=== PATIENT | male | born 1960 | race Caucasian/White ===

== ENCOUNTER 2016-10-06 20:20 | Emergency (ER) | payer SELFPAY ==
[2016-10-06 20:25] VITALS: BP 122/64
[2016-10-06] MEDS ORDERED: IPRATRPIUM/ALBUTEROL 0.5/2.5MG 3 ML NEBU. NEB ONE (21:00)
[2016-10-06] MEDS ORDERED: predniSONE 10 MG TABLET PO ONE (21:00)
[2016-10-06] MEDS ORDERED: BENZONATATE 100 MG CAPSULE. PO ONE (21:00)
[2016-10-06] MEDS ORDERED: AZIT250T6 PO (21:59)
[2016-10-06] MEDS ORDERED: FLUT9.9S NS (21:59)
[2016-10-06] MEDS ORDERED: PROAIR HFA8.5 GM INH (21:59)
[2016-10-06] MEDS ORDERED: BENZ100C PO (21:59)
[2016-10-06] MEDS ORDERED: PRED50TA PO (21:59)
--- NOTE | 2016-10-06 22:00 | PHYS DOC ---
Past Medical History Past Medical History: Hypertension Additional Past Medical Histor: mitral valve prolapse Past Surgical History: Tonsillectomy Additional Past Surgical Histo: back ,hernia,skni cancer removal Alcohol Use: None Drug Use: None Adult General Chief Complaint Chief Complaint: Congestion HPI HPI Patient is a 55 year old male who presents with cough & sinus congestion. he reports cough x 1 month now productive of white/yellow sputum, frequent at rest & with deep breathing. Also has generalized sinus congestion, ear pressure, headache. Denies fevers (though has been taking acetaminophen), vision changes , sore throat, shortness of breath, chest pain, nausea, vomiting, diarrhea. He is a current every day smoker, denies COPD. Also has history of HTN. Does not have a PCP. Review of Systems Review of Systems Constitutional: Denies fever or chills Eyes: Denies change in visual acuity HENT: Reports nasal congestion, denies sore throat Respiratory: Reports cough, denies shortness of breath Cardiovascular: Denies chest pain or edema GI: Denies abdominal pain, nausea, vomiting, or diarrhea Musculoskeletal: Denies back pain or joint pain Integument: Denies rash or skin lesions Neurologic: Reports headache, denies focal weakness or sensory changes Current Medications Current Medications Current Medications Medications (Trade) Dose Ordered Sig/Clay Start Time Stop Time Status Last Admin Dose Admin Albuterol/ Ipratropium (Duoneb) 3 ml 1X ONCE 10/06/16 21:00 10/06/16 21:01 DC 10/06/16 21:00 3 ML Benzonatate (Tessalon Perle) 100 mg 1X ONCE 10/06/16 21:00 10/06/16 21:01 DC 10/06/16 20:59 100 MG Prednisone (Prednisone) 50 mg 1X ONCE 10/06/16 21:00 10/06/16 21:01 DC 10/06/16 21:00 50 MG Allergies Allergies Allergies Coded Allergies Type Severity Reaction Last Updated Verified No Known Drug Allergies 10/06/16 No Physical Exam Physical Exam Constitutional: Well developed, well nourished, no acute distress, non-toxic appearance. HENT: Normocephalic, atraumatic, bilateral external ears normal, TMs clear bilaterally no bulging or erythema, oropharynx moist, no tonsillar enlargement/ exudate, nose normal. tenderness with palpation over frontal & maxillary sinuses bilaterally. Eyes: PERRLA, EOMI, conjunctiva normal, no discharge. Neck: supple, no stridor. Cardiovascular: RRR, no murmurs, no edema. Lungs & Thorax: LCTAB, no wheezing, no respiratory distress. frequent dry cough with deep breathing. Abdomen: soft, nontender, nondistended. Skin: Warm, dry, no erythema, no rash. Back: No tenderness. Extremities: No tenderness, no edema. no calf tenderness or swelling. Neurologic: Alert and oriented X 3, no focal deficits noted. Psychologic: Affect normal, judgement normal, mood normal. Current Patient Data Vital Signs Vital Signs Date Time Temp Pulse Resp B/P (MAP) Pulse Ox O2 Delivery O2 Flow Rate FiO2 10/06/16 20:58 92 Room Air 10/06/16 20:25 99.3 102 22 99.3 EKG EKG [] Radiology/Procedures Radiology/Procedures CXR: interpreted by me: no cardiomegaly, no infiltrate, no pneumothorax.[] Course & Med Decision Making Course & Med Decision Making Pertinent Labs and Imaging studies reviewed. (See chart for details) The patient presents with cough & congestion. Afebrile, not tachycardic. Normal oxygen saturation. Obviously appears to feel unwell though not toxic appearing. Frequent cough otherwise normal breath sounds. CXR unremarkable for infiltrate. Will empirically treat for bronchitis with z pack due to duration of cough. Antibiotics would not be indicated for sinus symptoms, likely viral. Will also give prednisone, albuterol inhaler, tessalon perles, flonase. Recommend rest, hydration, tylenol/ibuprofen for pain/fever. Follow up with primary care in 2-3 days if not improving. Come back for severe shortness of breath, uncontrolled vomiting, any otherwise worsening condition. Discharged home in stable condition. Dragon Disclaimer Dragon Disclaimer This electronic medical record was generated, in whole or in part, using a voice recognition dictation system. Departure Departure Impression: Primary Impression: Acute bronchitis Disposition: 01 HOME, SELF-CARE Condition: STABLE Referrals: NO PCP (PCP) Shonna SOTELO MD Patient Instructions: Acute Bronchitis, [id number], Sinusitis, [id number] Additional Instructions: You were seen in the emergency department today. Chest x-ray did not show pneumonia. Based on the duration of your cough, you are receiving a prescription for antibiotics. Sinusitis is usually caused by a virus and does not require antibiotics. Please use inhaler, Tessalon Perles, steroids, and Flonase nasal spray to treat symptoms. Be sure to drink fluids. Take Tylenol or ibuprofen for pain or fever. Follow-up with Dr. Sotelo in the primary care clinic in 2-3 days. Return to the emergency department for high fever, severe chest pain, severe shortness of breath, any otherwise worsening condition. Scripts Fluticasone Propionate (Flonase Allergy Relief) 9.9 Ml Leonard.susp 2 SPRAYS NS DAILY, #1 BOTTLE Prov: PETER MEHTA MD 10/06/16 Benzonatate (TESSALON PERLE) 100 Mg Capsule 100 MG PO TID Y for COUGH, #15 CAP Prov: PETER MEHTA MD 10/06/16 Albuterol Sulfate (PROAIR HFA INHALER) 8.5 Gm Hfa.aer.ad 1 PUFF INH PRN Q6HRS Y for SHORTNESS OF BREATH, #1 INHALER 0 Refills Prov: PETER MEHTA MD 10/06/16 Prednisone (PREDNISONE) 50 Mg Tablet 1 TAB PO DAILY, #5 TAB Prov: PETER MEHTA MD 10/06/16 Azithromycin (AZITHROMYCIN TABLET) 250 Mg Tablet 1 PKG PO UD, #6 TAB Prov: PETER MEHTA MD 10/06/16 PETER MEHTA MD Oct 06, 2016 22:00
--- NOTE | 2016-10-07 07:31 | RAD ---
Chest, 2 views, 10/06/2016: History: Cough and congestion The heart size is normal. No pulmonary infiltrates are seen. The lungs are somewhat hyperexpanded raising the possibility COPD. No pleural fluid is seen. Minimal spurring is present in the spine. IMPRESSION: No acute cardiopulmonary abnormality is detected.
== END 2016-10-06 22:11 | disposition home or self-care (01) ==
LOC: ER 20:20
DX: J20.9 Acute bronchitis, unspecified (principal); I10 Essential (primary) hypertension; I34.1 Nonrheumatic mitral (valve) prolapse
CPT/HCPCS: 71020; 94250; 94640; 99284; J7512; J7620